=== PATIENT | female | born 1980 | race Hispanic/Latino ===

== ENCOUNTER 2020-04-24 00:34 | Observation (INO) | payer BC ==
--- NOTE | 2020-04-24 00:38 | ED.PDOC ---
History of Present Illness - General Time Seen by Provider: 04/24/20 00:36 Information Source: patient, RN notes reviewed, Vital Signs reviewed, EMS notes reviewed, EMS, other - ED records - History of Present Illness Initial Comments: Was in [facility] ED with RUQ, no WBC, no fever, was found to have cholecystitis on CT scan. GBW thickening and pericholecystic fluid. Was given morphine and Unasyn. transferred her for cholecystitis. currently pain is well controlled. Abdominal Pain Onset Location: RUQ Pain Radiation: no radiation Quality: moderate, stabbing Timing/Duration: 24 hours Worsening Factors: eating Associated Symptoms: nausea/vomiting Review of Systems - Review of Systems Constitutional: Denies: chills, fever EENTM: Denies: blurred vision, ear pain Respiratory: Denies: cough, short of breath Cardiology: Denies: chest pain, palpitations Gastrointestinal/Abdominal: States: abdominal pain, nausea. Denies: diarrhea, vomiting Genitourinary: Denies: dysuria, frequency, hematuria Musculoskeletal: Denies: back pain, muscle pain Skin: Denies: rash Neurological: Denies: headache, numbness Endocrine: Denies: unexplained weight gain, unexplained weight loss Hematologic/Lymphatic: Denies: easy bleeding, easy bruising Past Medical History (General) - Patient Medical History Hx Seizures: No Hx Stroke: No Hx Dementia: No Hx Asthma: No Hx of COPD: No Hx Cardiac Disorders: No Hx Congestive Heart Failure: No Hx Pacemaker: No Hx Hypertension: No Hx Thyroid Disease: No Hx Diabetes: No Hx Gastroesophageal Reflux: No Hx Renal Disease: No Hx Cancer: No Hx of HIV: No Hx Hepatitis B: No Hx Hepatitis C: No Hx MRSA: No Hx Other PMH: No Family Medical History - Family History Mother Family History: Unknown Physical Exam - Physical Exam General Appearance: Alert, Comfortable, No apparent distress, Well Developed, Well Groomed, Well Hydrated, Well Nourished Eyes, Ears, Nose, Throat Exam: normal ENT inspection Neck: non-tender, full range of motion, supple, normal inspection Respiratory: chest non-tender, lungs clear, normal breath sounds, no respiratory distress, no accessory muscle use Cardiovascular/Chest: normal peripheral pulses, regular rate, rhythm, no edema Peripheral Pulses: 2+ Gastrointestinal/Abdominal: normal bowel sounds, soft, no organomegaly, other - RUQ tenderness, + duarte Rectal Exam: deferred Back Exam: normal inspection, no CVA tenderness, no vertebral tenderness Extremity: normal range of motion, non-tender, normal inspection, no pedal edema, no calf tenderness, normal capillary refill Neurologic: no motor/sensory deficits, alert, normal mood/affect, oriented x 3 Skin Exam: normal color, warm/dry Progress - Consult/PCP Consult/PCP: Janae Departure - Departure Clinical Impression: Cholecystitis Disposition: Admit Patient Home Medications: Ambulatory Orders Phentermine HCl 37.5 mg PO .QOTHERDAY 04/24/20 Decision To Admit - Decistion To Admit Decision to Admit Date: 04/24/20 Decision to Admit Time: 00:41
--- NOTE | 2020-04-24 01:58 | HP ---
HISTORY OF PRESENT ILLNESS: The patient is a 39-year-old female who was transferred from the [place] [facility] to our Emergency Room last night after developing right upper quadrant pain after eating fried shrimp yesterday. She had no previous history of previous fatty food intolerance, right upper quadrant pain, hepatitis or jaundice. She did not know that she had a gallstone. PAST MEDICAL HISTORY: 1. Childbirth x3. PAST SURGICAL HISTORY: 1. . 2. Tubal ligation. MEDICATIONS: 1. Phentermine 37 mg every other day. ALLERGIES: NO KNOWN DRUG ALLERGIES. FAMILY HISTORY: Unknown. SOCIAL HISTORY: The patient is . She has 3 children and has several living with her from her previous marriage and her own. No history of tobacco or alcohol abuse. 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 REVIEW OF SYSTEMS: There has been no shortness of breath, chest pain, no history of hypertension, no reflux symptoms, no history of urinary tract symptoms, no history of upper respiratory tract symptoms. No weight loss other than what she has lost from the Phentermine and dieting. PHYSICAL EXAMINATION: GENERAL: The patient is awake, alert, cooperative, in no acute distress. VITAL SIGNS: The patient is currently afebrile, normotensive. HEENT: Sclerae nonicteric. Mucous membranes moist. NECK: Without adenopathy. CHEST: Equal breath sounds bilaterally. HEART: Regular rate and rhythm. ABDOMEN: Soft. There is mild right upper quadrant tenderness with a positive Brewer's sign. There is no guarding. Bowel sounds are active. PELVIC/RECTAL: Deferred. EXTREMITIES: Without cyanosis, clubbing or edema. LABORATORY: Normal liver functions. Normal amylase. Normal white blood cell count. Negative test. Creatinine 1.1, which is mildly elevated. Sodium 138, potassium 3.8. Urinalysis was essentially clear except for specific gravity of greater than 1.030. Hemoglobin 13.7, white count 9.0, 52% neutrophils with platelet count 231,000. RADIOLOGY: CT scan reveals thickened gallbladder wall, fluid and a single 1.1 cm stone. ASSESSMENT: 1. Right upper quadrant pain. 2. Cholelithiasis. PLAN: The plan is for laparoscopic cholecystectomy later today. The risks, benefits and alternatives to the procedure were discussed and accepted by the patient and her questions were answered. [id number]
[2020-04-24] MEDS ORDERED: SODIUM CHLORIDE 0.9% (FLUSH) 10 ML SYG IV PRN (02:22)
[2020-04-24] MEDS ORDERED: ONDANSETRON INJ 4 MG/2 ML VIAL IV PRN ×2 (02:22→13:48)
[2020-04-24] MEDS ORDERED: IV SET AND CAP CHANGE INJ INJ SCH (02:30)
[2020-04-24] MEDS: LACTATED RINGERS 1,000 ML IVS PRN ×2 (02:37→11:07)
[2020-04-24] MEDS: MORPHINE SULFATE INJ 10 MG/ML VIAL IV PRN ×2 (06:14→11:18)
[2020-04-24] MEDS ORDERED: LIDOCAINE 1% 10 ML VIAL INJ ONE (10:00)
[2020-04-24] MEDS ORDERED: KETOROLAC TROMETHAMINE INJ 30 MG/ML VIAL IV ONE (10:00)
[2020-04-24] MEDS ORDERED: ceFAZolin SODIUM 1 GM VIAL IVPB ONE ×2 (10:00→12:36)
[2020-04-24] MEDS ORDERED: PROPOFOL 200 MG/20 ML VIAL IV ONE (10:00)
[2020-04-24] MEDS ORDERED: MAGNESIUM SULFATE INJ 1 GM/2 ML VIAL IVPB ONE (10:00)
[2020-04-24] MEDS ORDERED: DEXAMETHASONE INJ 10 MG/ML VIAL IV ONE (10:00)
[2020-04-24] MEDS ORDERED: ROCURONIUM BROMIDE 10 MG/ML VIAL ONE (11:32)
[2020-04-24] MEDS ORDERED: fentaNYL CITRATE INJ 50 MCG/ML 2 ML AMP ONE (11:32)
[2020-04-24] MEDS ORDERED: DEXMEDETOMIDINE HCL 200 MCG/2 ML INJ IV ONE (11:32)
[2020-04-24] MEDS ORDERED: SUGAMMADEX SODIUM 200 MG/2 ML VIAL IV ONE (11:32)
[2020-04-24] MEDS ORDERED: MIDAZOLAM INJ 2 MG/2 ML VIAL ONE (11:32)
[2020-04-24] MEDS ORDERED: FAMOTIDINE INJ 10 MG/ML VIAL IV ONE (11:33)
[2020-04-24] MEDS ORDERED: BUPIVACAINE 0.25% W/EPI 50 ML VIAL INJ ONE ×2 (12:36)
[2020-04-24] MEDS ORDERED: HEPARIN SODIUM (PORCINE) 10,000 UNITS/ML VIAL IRRIG ONE (12:53)
[2020-04-24] MEDS ORDERED: LACTATED RINGERS 1,000 ML IVS PRN (13:48)
[2020-04-24] MEDS ORDERED: ACETAMINOPHEN W/COD #3 TAB 1 EA TAB PO PRN (13:50)
[2020-04-24] MEDS ORDERED: ONDANSETRON INJ 4 MG/2 ML VIAL IV ONE (14:22)
[2020-04-24] MEDS ORDERED: MEPERIDINE HCL 50 MG/ML VIAL ONE (14:22)
[2020-04-24] MEDS ORDERED: MEPERIDINE HCL 50 MG/ML VIAL IV ONE (14:25)
--- NOTE | 2020-04-24 14:28 | OP ---
DATE OF PROCEDURE: 04/24/20 PREOPERATIVE DIAGNOSIS: 1. Right upper quadrant abdominal pain. 2. Cholelithiasis. 3. CT scan consistent with acute cholecystitis with gallbladder wall thickening and pericholecystic fluid. POSTOPERATIVE DIAGNOSIS: 1. Right upper quadrant abdominal pain. 2. Cholelithiasis. 3. CT scan consistent with acute cholecystitis with gallbladder wall thickening and pericholecystic fluid. 4. Chronic and subacute cholecystitis. PROCEDURE: 1. Laparoscopic cholecystectomy with intraoperative cholangiography using fluoroscopy. SURGEON: Kingsley Cardoso MD. CREDIT OR LOANS OFFICER: None. ANESTHESIA: Local infiltration of 0.25% Marcaine with epinephrine and general endotracheal anesthesia. INDICATION: The patient is a 39-year-old female who developed abdominal pain yesterday in the right upper quadrant with radiation to the back with some nausea. She presented to the Emergency Room in [place] which performed at CT scan which showed a single gallstone and a thickened gallbladder wall, etc. She had normal laboratory examination, but they made the transfer to our Emergency Room with diagnosis of acute cholecystitis. She was admitted to observation, hydrated overnight and kept NPO. This morning, she was examined, still had right upper quadrant pain and after the risks, benefits and alternatives to cholecystectomy were discussed and accepted, she was brought to the Surgical Suite this afternoon for cholecystectomy. FINDINGS: The gallbladder wall was thickened and edematous. Intraoperative cholangiography revealed free flow into the duodenum with no filling defects or strictures noted. There was one stone palpable in the gallbladder after removal. There were also adhesions from the omentum to the body of the gallbladder. DESCRIPTION OF PROCEDURE: After adequate general endotracheal anesthesia was obtained, the patient was prepped and draped in the usual sterile manner. Surgical time-out was taken. It was noted that she was given 2 grams of Ancef. At this point, the infraumbilical area was infiltrated with local anesthesia. A curvilinear incision was fashioned and carried down through the subcutaneous tissue to the midline fascia. Traction sutures were placed on either side of the midline. A small incision was made in the midline fascia and the peritoneum was opened bluntly. A 10 mm port with a 5 cc balloon was introduced below the fascia and the balloon was inflated to hold the trocar in place. At this point, CO2 was then insufflated until a pressure of 12 mmHg was reached and the abdomen was tympanitic in all four quadrants. When this was done, the laparoscope was introduced with the previously noted findings. The patient was then placed in reverse Trendelenburg position and turned to the left side. The upper abdominal ports were placed under direct vision. The gallbladder was grasped, retracted anteriorly. The adhesions to the gallbladder were taken down using blunt dissection with little problem. The gallbladder was then retracted superiorly. The neck of the gallbladder was retracted laterally. The triangle of Calot was then explored with the cystic duct and cystic artery identified and isolated. The cystic duct was hemoclipped once proximally. The cystic artery was hemoclipped twice proximally and once distally. A small incision was made in the cystic duct. The cholangiogram catheter was introduced through a separate stab wound in the right upper quadrant, introduced into the cystic duct and clipped in place. Cholangiograms were then taken which revealed free flow into the duodenum with no filling defects or strictures noted. When this was done, the cystic duct catheter was removed. The cystic duct was hemoclipped three times distally and divided between the hemoclips. The cystic artery was clipped twice proximally and once distally. It was then divided. The gallbladder was then dissected free from the gallbladder bed of the liver using electrocautery. The gallbladder was placed in an EndoCatch bag and removed from the infraumbilical port site in the usual manner under direct vision. When this was done, the subhepatic space and subphrenic space were irrigated copiously with saline. The effluent was noted to be clear. The upper abdominal ports were removed and adequate hemostasis was noted. The al hepatis was inspected. There was no bleeding or bile leak identified. At this point, the CO2, the laparoscope and the infraumbilical port were removed. The infraumbilical port site fascia was approximated with a single [id number] suture of 0 Vicryl. Subcutaneous tissue was irrigated with saline. Skin edges were approximated with 4-0 Vicryl subcuticular sutures, benzoin and Steri-Strips. Sterile dressings were applied. The patient was awakened and taken to the Recovery Room in good and stable condition. [facility][id number] [facility]
[2020-04-24] MEDS ORDERED: MORPHINE SULFATE INJ 10 MG/ML VIAL IV ONE ×2 (14:35→14:45)
[2020-04-24] MEDS ORDERED: MORPHINE SULFATE INJ 10 MG/ML VIAL ONE (14:36)
[2020-04-24 15:23] VITALS: BP 108/68; TEMP 98; O2SAT 99
--- NOTE | 2020-04-24 19:34 | DS ---
FINAL DIAGNOSIS: 1. Cholelithiasis. 2. Acute and chronic cholecystitis. SURGICAL PROCEDURE: The patient underwent a laparoscopic cholecystectomy with intraoperative cholangiography on 04/24/20. HISTORY OF PRESENT ILLNESS: The patient is a 39-year-old female who was transferred from the [place] [facility] Room to our Emergency Room last night after developing right upper quadrant pain after eating fried shrimp yesterday. She had no previous history of previous fatty food intolerance, right upper quadrant pain, hepatitis or jaundice. She did not know that she had a gallstone. LABORATORY EXAMINATION: All from [facility] which revealed normal liver function, normal amylase and normal white count, and a negative test. Urinalysis with a concentrated specific gravity of greater than 1.030. Pathology report is pending. HOSPITAL COURSE: The patient was transferred from the [place] [facility] Room to our Emergency Room and admitted last night to observation. On examination this morning, the patient had been NPO, still was tender in the right upper quadrant with a positive Brewer's sign. The CT scan does reveal a thickened gallbladder wall and pericholecystic fluid, so the risks, benefits, and alternatives to cholecystectomy were discussed with the patient. She agreed to the plan. Early this afternoon she underwent laparoscopic cholecystectomy with cholangiography without significant difficulty and little blood loss. She is postoperative now and waking up, tolerating clear liquids and at this time she will be discharged home. Condition on discharge was good. Prognosis is excellent. DISPOSITION: The patient is to followup in my office in 9 days. She is discharged on a low fat diet. Told to push fluids. Told she can ambulate but do no lifting or exercise. Told she can shower in the morning and then change her dressing. She is discharged with a prescription for Tylenol #3 and is told she can start her Phentermine when she feels up to it. She was instructed to call my office for appointment times for next Friday, and also to call if she has any other problems. [facility][id number] [facility]
--- NOTE | 2020-04-26 09:50 | RAD ---
EXAM DESCRIPTION: Fluoroscopy Up to 1Hr CLINICAL HISTORY: 39 years Female, IOC COMPARISON: None. TECHNIQUE: Fluoroscopic images from an ERCP. Fluoroscopy time: 9.7 seconds Fluoroscopic images: 2 Total dose: 1.62 mGy IMPRESSION: Intraprocedural fluoroscopic images saved for the benefit of the surgeon. Cannulation of the cystic duct with opacification of the biliary tree. Nondilated common bile duct and without persistent filling defect or stricture. The pancreatic duct is not visualized. Please refer to procedural report for full details. Electronically signed by: Chano Mercer MD 04/26/2020 9:48 AM [facility]
== END 2020-04-24 18:02 | disposition home or self-care (01) ==
LOC: ER 00:34 → MS 01:57
PROVIDERS: ADMIT Nurse Practitioner Family; ATTEND Surgery
DX: K80.12 Calculus of gallbladder with acute and chronic cholecystitis without obstruction (principal); R11.2 Nausea with vomiting, unspecified
CPT/HCPCS: 47563; 00790; 96361; 96374; 96375; 96376; J0690 ×2; J3010; J1644; J1885; J2175; J2270 ×4; J2405 ×3; J3490; J3475; J1100; J2250; J7120 ×2; 76000; 94760; 99285; G0378

== ENCOUNTER → 2020-06-05 | Outpatient (CLI) | payer BC ==
--- NOTE | 2020-06-05 15:07 | RAD ---
EXAM DESCRIPTION: Left ankle, 3 radiographs CLINICAL HISTORY: PAIN IN ANKLE FINDINGS/ IMPRESSION: Normal mineralization. Normal alignment No focal demineralization or inflammatory erosion. No fracture or acute osteochondral lesion. Ankle mortise is symmetric. Small medial tibiotalar marginal osteophytes. 2 loose bodies in the anterior joint, measuring 6 and 3 mm. Electronically signed by: Juanito Fox MD 06/05/2020 3:06 PM [facility]
== END ==
LOC: RAD 11:56
PROVIDERS: ATTEND Orthopaedic Surgery
DX: M25.572 Pain in left ankle and joints of left foot (principal); M24.072 Loose body in left ankle; M25.772 Osteophyte, left ankle

== ENCOUNTER → 2020-06-07 | Outpatient (CLI) | payer BC ==
--- NOTE | 2020-06-08 07:25 | MRI ---
Study: MRI of the Left Ankle. Indication: TENDON RUPTURE Technique: Multiplanar, multi sequence MRI of the left ankle was obtained without intravenous contrast. Comparison: Radiographs June 05, 2020. Findings: Acute full-thickness tear of the proximal Achilles tendon occurring approximately 5 cm cranial to the superior margin of the posterior calcaneal tuberosity. The tear gap extends over a craniocaudal length of 2 cm. These changes are on a background of high-grade tendinosis with thickening of the tendon up to 1 cm AP. Surrounding edema/inflammation. Trace retrocalcaneal bursal fluid. Moderate plantar calcaneal heel spurring with mild inflammation and thickening of the origin of the central cord plantar fascia without rupture. Mild tenosynovitis medial tendons and peroneal tendons with insertional posterior tibialis tendinosis. Anterior tendons intact. Prior sprains anterior talofibular ligament, calcaneofibular ligament, deep and superficial deltoid ligament. Mild areas of grade 4 chondrosis and subchondral marrow change at the medial and lateralmost margins of the talar dome. Moderate tibiotalar joint effusion with a 4 mm loose body anteriorly. No acute fracture or talar coalition. Impression: Acute full-thickness tear proximal Achilles tendon on a background of high-grade tendinosis. Additional findings as above. Electronically signed by: Sammy Norris MD 06/08/2020 7:24 AM [facility]
== END ==
LOC: MRI 11:56
PROVIDERS: ATTEND Orthopaedic Surgery
DX: S86.012A Strain of left Achilles tendon, initial encounter (principal); M76.62 Achilles tendinitis, left leg; M77.32 Calcaneal spur, left foot; M94.272 Chondromalacia, left ankle and joints of left foot; M25.472 Effusion, left ankle; M24.072 Loose body in left ankle